=== PATIENT | male | born 1960 | race American Indian/Alaskan Native ===

== ENCOUNTER 2017-01-07 20:20 | Emergency (ER) | payer MEDICAID ==
[2017-01-07 20:37] VITALS: BP 128/69; PULSE 100; RESP 18; TEMP 98.1; O2SAT 99
--- NOTE | 2017-01-07 21:26 | ED PDOC ---
Lower Extremity Pain/Injury Time Seen by Provider: 01/07/17 20:50 Chief Complaint (Nursing): Lower Extremity Problem/Injury Chief Complaint (Provider): B/l ankle swelling and pain History Per: Patient History/Exam Limitations: no limitations Onset/Duration Of Symptoms: Days (2) Current Symptoms Are (Timing): Still Present Severity: Moderate Additional Complaint(s): Pt is a 56yo male, presents to ED for evaluation of atraumatic pain and swelling in his ankles for the past 2 days. Pt reports greater swelling in his ankles and denies any trauma, abdominal pain, fever, chest pain, SOB, hemoptysis and PMHx of DVT, PE or CHF. Pt offers no additional medical complaints. Past Medical History Reviewed: Historical Data, Nursing Documentation, Vital Signs Vital Signs: Last Vital Signs Temp 98.1 F 01/07/17 20:34 Pulse 100 H 01/07/17 20:34 Resp 18 01/07/17 20:34 BP 128/69 01/07/17 20:34 Pulse Ox 99 01/07/17 20:34 - Medical History PMH: No Chronic Diseases Denies: CHF, Deep Vein Thrombosis, Pulmonary Embolism - Surgical History Surgical History: No Surg Hx - Family History Family History: States: Unknown Family Hx - Home Medications Home Medications: Ambulatory Orders Medication Instructions Recorded Naproxen [Naprosyn] 500 mg PO BID PRN #30 tab 01/07/17 - Allergies Allergies/Adverse Reactions: Allergies Allergy/AdvReac Type Severity Reaction Status Date / Time No Known Allergies Allergy Verified 01/07/17 20:33 Review of Systems ROS Statement: Except As Marked, All Systems Reviewed And Found Negative Musculoskeletal: Positive for: Foot Pain (bilateral ankle pain and swelling) Physical Exam - Reviewed Nursing Documentation Reviewed: Yes Vital Signs Reviewed: Yes - Physical Exam Appears: Positive for: Well, Non-toxic, No Acute Distress Head Exam: Positive for: ATRAUMATIC, NORMAL INSPECTION, NORMOCEPHALIC Skin: Positive for: Normal Color, Warm, Dry. Negative for: Rash Eye Exam: Positive for: Normal appearance Neck: Positive for: Normal, Supple Cardiovascular/Chest: Positive for: Regular Rate, Rhythm Respiratory: Positive for: Normal Breath Sounds. Negative for: Crackles, Rales , Rhonchi, Stridor, Wheezing, Respiratory Distress Pulses-Dorsalis Pedis (L): 2+ Pulses-Dorsalis Pedis (R): 2+ Extremity: Positive for: Normal ROM, Pedal Edema (2+ pitting edema bilaterally to ankles, 1+ pitting edema to lower extremities. No warmth or erythema. Old dry scabs noted without surrounding erythema or discharge) - Laboratory Results Result Diagrams: 01/07/17 22:09 01/07/17 22:09 - ECG O2 Sat by Pulse Oximetry: 99 (RA) Pulse Ox Interpretation: Normal - Progress ED Course And Treament: Duplex b/l lower extremity: no DVT. Medical Decision Making Medical Decision Making: Time: 2102 Impression: B/l ankle swelling Plan: -- CBC -- CMP -- CXR -- Doppler US b/l lower extremities --Reassess Scribe Attestation: All records were documented by Margie Rodriguez, acting as a Scribe for GRIS Gaston. Provider Scribe Attestation: All medical record entries made by the Scribe were at my direction and personally dictated by me. I have reviewed the chart and agree that the record accurately reflects my personal performance of the history, physical exam, medical decision making, and the department course for this patient. I have also personally directed, reviewed, and agree with the discharge instructions and disposition. Disposition - Clinical Impression Clinical Impression: Leg edema, left, Leg edema, right, Leukocytosis - Patient ED Disposition Is Patient to be Admitted: No - Disposition Referrals: [facility] [Outside] Disposition: Routine/Home Disposition Time: 23:52 Condition: STABLE Prescriptions: Naproxen [Naprosyn] 500 mg PO BID PRN #30 tab PRN Reason: Pain Instructions: Leg Edema (ED), Leukocytosis (ED) Print Language: CONGOLESE
[2017-01-07 22:14] LABS: BASO # 0.1 K/uL (0.0-0.2); BASO % 0.7 % (0.0-2.0); EOS # 0.1 K/uL (0.0-0.7); EOS % 0.6 % (0.0-4.0); HEMATOCRIT 37.4 % (35.0-51.0); LYMPH # 1.8 K/uL (1.0-4.3); LYMPH % 11.5 % (20.0-40.0); MEAN CELL VOLUME 96.9 fl (80.0-94.0); MEAN CORPUSCULAR HEMOGLOBIN 32.2 pg (27.0-31.0); MEAN CORPUSCULAR HGB CONC 33.2 g/dL (33.0-37.0); MEAN PLATELET VOLUME 8.3 fl (7.2-11.7); MONO # 1.3 K/uL (0.0-0.8); NEUT # 12.6 K/uL (1.8-7.0); NEUT % 79.2 % (50.0-75.0); WHITE BLOOD COUNT 15.9 K/uL (4.8-10.8)
[2017-01-07 22:26] LABS: ALB/GLOB RATIO 0.9 (1.0-2.1); ALKALINE PHOSPHATASE 79 U/L (38-126); ALT/SGPT 24 U/L (21-72); AST/SGOT 39 U/L (17-59); BILIRUBIN,TOTAL 0.3 mg/dl (0.2-1.3); BLOOD UREA NITROGEN 10 mg/dl (9-20); CALCIUM 8.6 mg/dL (8.4-10.2); CARBON DIOXIDE 27 mmol/L (22-30); CHLORIDE 99 mmol/L (98-107); GFR AFRICAN-AMERICAN > 60; GLUCOSE,RANDOM 105 mg/dL (75-110); POTASSIUM 4.1 MMOL/L (3.6-5.0); SODIUM 137 mmol/l (132-148); TOTAL PROTEIN 7.7 G/DL (6.3-8.2)
--- NOTE | 2017-01-07 23:35 | US ---
EXAM: US Duplex Bilateral Lower Extremity Veins CLINICAL HISTORY: 56 years old, male; Signs and symptoms; Edema, localized; Lower extremity, bilateral; Patient HX: Ankle swelling, skin disorder; Additional info: Pain and swelling TECHNIQUE: Real-time ultrasound scan of the veins of the bilateral lower extremities with color Doppler flow, spectral waveform analysis and compression. COMPARISON: No relevant prior studies available. FINDINGS: Right deep veins: Normal color and spectral Doppler flow. Normal compressibility. No deep vein thrombosis from common femoral to popliteal vein. Right superficial veins: Unremarkable. Left deep veins: Normal color and spectral Doppler flow. Normal compressibility. No deep vein thrombosis from common femoral to popliteal vein. Left superficial veins: Unremarkable. Soft tissues: No popliteal cyst. Lymph nodes: RIGHT inguinal lymph nodes, largest measuring 2.6 x 1.1 cm. LEFT inguinal lymph nodes, largest measuring 3.0 x 1.0 cm. IMPRESSION: 1. No evidence of DVT within the lower extremities. 2. Incidental/non-acute findings are described above.
--- NOTE | 2017-01-08 08:39 | RAD ---
HISTORY: lower extremity edema COMPARISON: No prior. TECHNIQUE: Chest PA and lateral FINDINGS: LUNGS: No active pulmonary disease. PLEURA: No significant pleural effusion identified. No pneumothorax apparent. CARDIOVASCULAR: Normal. OSSEOUS STRUCTURES: No significant abnormalities. VISUALIZED UPPER ABDOMEN: Normal. OTHER FINDINGS: None. IMPRESSION: No active disease.
== END 2017-01-08 02:00 | disposition home or self-care (01) ==
LOC: H.ER 20:20
DX: R60.9 Edema, unspecified (principal); D72.829 Elevated white blood cell count, unspecified

== ENCOUNTER 2018-12-20 16:45 | Emergency (ER) | payer SELFPAY ==
[2018-12-20 16:58] VITALS: BP 118/68; PULSE 78; RESP 16; TEMP 97.6; O2SAT 99
== END 2018-12-20 17:10 | disposition left against medical advice (07) ==
LOC: H.ER 16:45
DX: Z02.89 Encounter for other administrative examinations (principal)